=== PATIENT | female | born 1985 ===

== ENCOUNTER 2019-11-10 14:40 | Outpatient (REF) | payer BC, SELFPAY ==
[2019-11-13 22:04] LABS: SARS-CoV-2 RNA Undetected (Undetected)
== END 2019-11-10 15:00 ==
LOC: NCHCN 14:40
PROVIDERS: PCP Family Medicine; Visit Provider Family Medicine
DX: Z20.828 Contact with and (suspected) exposure to other viral communicable diseases (principal)
CPT/HCPCS: U0003

== ENCOUNTER 2020-02-04 16:21 | Outpatient (REF) | payer BC, SELFPAY ==
[2020-02-08 22:30] LABS: SARS-CoV-2 RNA Undetected (Undetected); SARS-CoV-2 Specimen Source Nasal
== END 2020-02-04 16:41 ==
LOC: NCHCN 16:21
PROVIDERS: PCP Family Medicine; Visit Provider Nurse Practitioner Community Health
DX: Z11.59 Encounter for screening for other viral diseases (principal)
CPT/HCPCS: U0003